=== PATIENT | male | born 1990 | race Two or more races ===

== ENCOUNTER 2017-10-21 23:50 | Emergency (ER) | payer OTHER ==
[~2017-10-21] VITALS: Ht 182.9 cm; Wt 72.6 kg
[~2017-10-21 23:50] MED LIST: VISTARIL25 MG PO; XANAX0.25 MG PO
[2017-10-22] MEDS ORDERED: ALBUTEROL2.5 MG/3 M IH (08:06)
[2017-10-22] MEDS ORDERED: ZYNCOF 20-400120 ML PO (08:06)
== END 2017-10-22 08:26 | disposition home or self-care (01) ==
LOC: ER 23:50
DX: J40 Bronchitis, not specified as acute or chronic (principal)

== ENCOUNTER 2021-04-13 15:22 | Emergency (ER) | payer OTHER ==
[~2021-04-13] VITALS: Ht 185.4 cm; Wt 68.0 kg
[~2021-04-13 15:22] MED LIST changes: +ALBUTEROL2.5 MG/3 M IH; +ZYNCOF 20-400120 ML PO
[2021-04-13] MEDS ORDERED: ZITHROMAX500 MG PO (20:32)
[2021-04-13] MEDS ORDERED: KETO10TA2 PO (20:32)
[2021-06-06] MEDS ORDERED: LAMOTRIGINE 200 MG (18:30)
== END 2021-04-13 20:34 ==
LOC: ER 15:22
DX: J06.9 Acute upper respiratory infection, unspecified (principal)

== ENCOUNTER → 2021-06-06 | Emergency (ER) | payer OTHER ==
[~2021-06-06] VITALS: Ht 185.4 cm; Wt 72.6 kg
[~2021-06-06] MED LIST changes: +KETO10TA2 PO; +LAMOTRIGINE 200 MG; +ZITHROMAX500 MG PO
== END | disposition home or self-care (01) ==
LOC: ER 18:12
DX: M25.511 Pain in right shoulder (principal)